=== PATIENT | female | born 1945 | race Two or more races ===

== ENCOUNTER 2018-09-05 11:00 | Emergency (ER) | payer MEDICARE, OTHER ==
[~2018-09-05] VITALS: Ht 175.3 cm; Wt 72.6 kg
[2018-09-05 11:29] LABS: Basophils # (auto) 0.1 uL; Basophils % (auto) 1.2 % (0.0-2.0); Eosinophils # (auto) 0.1 uL; Eosinophils % (auto) 1.9 % (0.0-7.0); Hematocrit 43.6 % (36.0-46.0); Hemoglobin 14.3 g/dL (12.2-16.2); Lymphocytes # (auto) 1.2 uL; Lymphocytes % (auto) 20.8 % (10.0-50.0); Mean Corpuscular Hemoglobin 32.5 pg (28.0-32.0); Mean Corpuscular Hgb Conc. 32.8 g/dL (32.0-36.0); Mean Corpuscular Volume 98.9 fL (80.0-100.0); Monocytes # (auto) 0.6 uL; Monocytes % (auto) 11.5 % (0.0-12.0); Neutrophils # (auto) 3.7 uL; Neutrophils % (auto) 64.6 % (37.0-80.0); Nucleated Red Blood Cells % 0.1 %; Platelet Count (auto) 218 10^3/uL (140-450); Red Blood Cells 4.41 10^6/uL (4.0-5.20); Red Cell Distribution Width 14.4 % (11.8-14.3); White Blood Cell 5.7 10^3/uL (4.4-10.8)
[2018-09-05 11:45] LABS: Albumin 3.4 g/dL (3.4-5.0); Anion Gap 4 (5-15); Blood Urea Nitrogen 10 mg/dL (7-18); Calcium 8.5 mg/dL (8.5-10.1); Carbon Dioxide 27 mmol/L (21-32); Chloride 108 mmol/L (98-107); Glucose 108 mg/dL (74-106); Potassium 3.9 mmol/L (3.5-5.1); Sodium 139 mmol/L (136-145)
[2018-09-05 11:51] LABS: Alanine Aminotransferase 21 U/L (13-56); Alkaline Phosphatase 76 U/L (45-117); Aspartate Aminotransferase 22 U/L (15-37); BUN/Creatinine Ratio 13.9; Bilirubin, Total 0.6 mg/dL (0.2-1.0); GFR African American > 60 mL/min; GFR Non-African American > 60 mL/min; Total Protein 7.2 g/dL (6.4-8.2)
[2018-09-05] MEDS ORDERED: TETANUS-DIPTH-ACEL PERTUSSIS 0.5ML SYRG IM ONE (12:15)
[2018-09-05 13:58] LABS: Urine Bacteria NONE SEEN /hpf (None Seen); Urine Blood Negative /uL (Negative); Urine Mucus FEW (None Seen); Urine Specific Gravity 1.012 (1.001-1.035); Urine WBC <1 /hpf (0 - 5)
[2018-09-05 14:38] VITALS: BP 158/84
[2018-09-05] MEDS ORDERED: LIDOCAINE 2% (LOCAL ANESTH.) PF 5ml SDV ONE (14:45)
== END 2018-09-05 15:03 | disposition left against medical advice (07) ==
LOC: ER 11:10
DX: S01.112A Laceration without foreign body of left eyelid and periocular area, initial encounter (principal); S01.412A Laceration without foreign body of left cheek and temporomandibular area, initial encounter; S09.90XA Unspecified injury of head, initial encounter; F03.90 Unspecified dementia, unspecified severity, without behavioral disturbance, psychotic disturbance, mood disturbance, and anxiety; M25.562 Pain in left knee; W18.39XA Other fall on same level, initial encounter; Y93.89 Activity, other specified; Y99.8 Other external cause status; Y92.511 Restaurant or cafe as the place of occurrence of the external cause
CPT/HCPCS: 36415; 70450; 70486; 71045; 73560; 80053; 81001; 84484; 85025; 90471; 90715; 93005; 94761; 99284; J2001

== ENCOUNTER 2018-12-22 17:13 | Emergency (ER) | payer MEDICARE ==
[~2018-12-22] VITALS: Ht 167.6 cm; Wt 72.6 kg
[2018-12-22 18:08] LABS: Basophils # (auto) 0.2 uL; Hemoglobin 13.1 g/dL (12.2-16.2); Mean Corpuscular Volume 102.7 fL (80.0-100.0); Nucleated Red Blood Cells % 0.1 %; White Blood Cell 5.7 10^3/uL (4.4-10.8)
[2018-12-22 18:10] LABS: Basophils % (auto) 2.9 % (0.0-2.0); Eosinophils # (auto) 0.1 uL; Eosinophils % (auto) 2.3 % (0.0-7.0); Hematocrit 38.7 % (36.0-46.0); Lymphocytes # (auto) 1.7 uL; Lymphocytes % (auto) 29.2 % (10.0-50.0); Mean Corpuscular Hemoglobin 34.8 pg (28.0-32.0); Mean Corpuscular Hgb Conc. 33.9 g/dL (32.0-36.0); Monocytes # (auto) 0.9 uL; Monocytes % (auto) 15.8 % (0.0-12.0); Neutrophils # (auto) 2.8 uL; Neutrophils % (auto) 49.8 % (37.0-80.0); Platelet Count (auto) 217 10^3/uL (140-450); Red Blood Cells 3.77 10^6/uL (4.0-5.20); Red Cell Distribution Width 13.7 % (11.8-14.3)
[2018-12-22 18:21] LABS: Albumin 3.2 g/dL (3.4-5.0); BUN/Creatinine Ratio 16.9; Calcium 8.3 mg/dL (8.5-10.1); Potassium 3.8 mmol/L (3.5-5.1)
[2018-12-22 18:23] LABS: Bilirubin, Total 0.2 mg/dL (0.2-1.0); Total Protein 6.6 g/dL (6.4-8.2)
[2018-12-22 19:39] LABS: INR 0.99 (0.9-1.15); Partial Thromboplastin Time 26.9 sec (23.78-33.04); Prothrombin Time 10.6 sec (9.27-12.13)
[2018-12-22 20:35] VITALS: BP 112/89
[2018-12-22 20:46] LABS: Urine Bacteria FEW /hpf (None Seen); Urine Blood Negative /uL (Negative); Urine Specific Gravity 1.004 (1.001-1.035); Urine WBC <1 /hpf (0 - 5)
== END 2018-12-23 10:34 | disposition home or self-care (01) ==
LOC: ER 17:13 → EDUNIT# 17:13 → EDBD 17:13 → ER 12-23 10:34
DX: G44.209 Tension-type headache, unspecified, not intractable (principal)
CPT/HCPCS: 36415; 70450; 80053; 81001; 84484; 85025; 85610; 85730; 93005

== ENCOUNTER 2019-09-01 18:11 | Emergency (ER) | payer MEDICARE ==
[~2019-09-01] VITALS: Ht 167.6 cm; Wt 65.8 kg
[2019-09-01 20:50] LABS: Basophils # (auto) 0.1 uL; Eosinophils # (auto) 0.3 uL; Mean Corpuscular Hemoglobin 34.5 pg (28.0-32.0); Neutrophils # (auto) 4.1 uL
[2019-09-01 20:52] LABS: Basophils % (auto) 1.3 % (0.0-2.0); Eosinophils % (auto) 4.4 % (0.0-7.0); Lymphocytes # (auto) 1.9 uL; Mean Corpuscular Volume 101.3 fL (80.0-100.0); Monocytes % (auto) 13.1 % (0.0-12.0); Neutrophils % (auto) 55.2 % (37.0-80.0); Nucleated Red Blood Cells % 0.2 %; Platelet Count (auto) 249 10^3/uL (140-450); Red Blood Cells 4.05 10^6/uL (4.0-5.20); Red Cell Distribution Width 13.8 % (11.8-14.3); White Blood Cell 7.4 10^3/uL (4.4-10.8)
[2019-09-01 21:01] LABS: Albumin 3.3 g/dL (3.4-5.0); Calcium 8.4 mg/dL (8.5-10.1); Potassium 3.7 mmol/L (3.5-5.1)
[2019-09-01 21:03] LABS: INR 1.06 (0.9-1.15)
[2019-09-01 21:04] LABS: BUN/Creatinine Ratio 17.8; Bilirubin, Total 0.4 mg/dL (0.2-1.0); Total Protein 7.3 g/dL (6.4-8.2)
[2019-09-01] MEDS ORDERED: ALBUTEROL SULF 2.5 MG/0.5ML(0.5%) NEB SOLN NEB ONE (22:45)
[2019-09-01] MEDS ORDERED: IPRATROPIUM BROM 0.5 MG/2.5ML INH SOL NEB ONE (22:45)
[2019-09-01 23:46] VITALS: BP 149/75
== END 2019-09-02 02:49 | disposition home or self-care (01) ==
LOC: EDBD 18:11 → ER 18:11
DX: R19.7 Diarrhea, unspecified (principal); I10 Essential (primary) hypertension
CPT/HCPCS: 36415; 80053; 85025; 85610; 94640; 99283; J7611; J7644